=== PATIENT | female | born 1975 | race Caucasian/White ===

== ENCOUNTER 2022-08-16 09:13 | Inpatient (IN) | payer OTHER ==
[~2022-08-16] VITALS: Ht 157.5 cm; Wt 57.8 kg
[2022-08-16 11:17] LABS: BASOPHILS % 0.7 % (0.0-2.0); EOSINOPHILS % 0.2 % (0.0-5.0); LYMPHOCYTES % 20.4 % (20.0-50.0); MEAN CORPUSCULAR VOLUME 55.8 fL (81.0-99.0); MEAN PLATELET VOLUME 8.2 fl (7.4-10.4); MONOCYTES % 9.4 % (2.0-8.0); NEUTROPHILS % 69.3 % (40.0-76.0); PLATELET 414 x1000/uL (130-400); RED BLOOD CELL COUNT 2.32 mill/uL (4.2-5.4); RED CELL DISTRIBUTION WIDTH 24.1 % (11.6-14.6)
[2022-08-16 11:40] LABS: HEMATOCRIT. 12.9 % (36.0-48.0); HEMOGLOBIN. 3.5 g/dL (12.0-16.0)
[2022-08-16 11:49] LABS: CHLORIDE 106 mEq/L (98-107)
[2022-08-16 11:50] LABS: INR 1.1; PROTHROMBIN TIME 11.3 sec (9.6-11.0)
[2022-08-16 11:57] LABS: B-HCG QUANTITATIVE < 1 mIU/mL (<3)
[2022-08-16 12:01] LABS: HCG SCREEN NEGATIVE
[2022-08-16 12:03] LABS: PLATELET ESTIMATE NORMAL
[2022-08-16 12:37] LABS: CLARITY URINE CLOUDY (CLEAR); COLOR URINE YELLOW (YELLOW); KETONES URINE NEGATIVE (NEGATIVE); LEUKOCYTE ESTERASE URINE 2+ (NEGATIVE); NITRITE URINE NEGATIVE (NEGATIVE); OCCULT BLOOD URINE 3+ (NEGATIVE); PH URINE 5.5 (4.5-8.0); PROTEIN URINE TRACE (NEGATIVE); SPECIFIC GRAVITY URINE 1.012 (1.005-1.030)
[2022-08-16] MEDS ORDERED: POTASSIUM CHLORIDE 20MEQ TABLET SR PO ONE (12:45)
[2022-08-16] MEDS ORDERED: SODIUM CHLORIDE 0.9% 1,000 ML IV ONE (12:45)
[2022-08-16] MEDS ORDERED: CEFTRIAXONE 1 G PREMIX 50 ML IV ONE (12:45)
[2022-08-16] MEDS ORDERED: POTASSIUM CHLORIDE INJ 40 MEQ in DEXT 5% WATER 250 ML IV ONE (12:45)
[2022-08-16] MEDS: KCL 20MEQ/100ML X 2 FOR TOTAL KCL 40MEQ/200ML IV SCH ×2 (13:15→23:57)
[2022-08-16] MEDS ORDERED: CEFTRIAXONE 1 G PREMIX 50 ML IV NR (15:30)
[2022-08-16] MEDS ORDERED: ACETAMINOPHEN 325MG TABLET PO NR (20:30)
[2022-08-17] VITALS (12 sets, daily range): BP systolic 88–111; BP diastolic 44–98
[2022-08-17 01:54] LABS: BASOPHILS % 0.8 % (0.0-2.0); EOSINOPHILS % 0.1 % (0.0-5.0); LYMPHOCYTES % 16.2 % (20.0-50.0); MEAN CORPUSCULAR HEMOGLOBIN 18.4 pg (28.0-32.0); MEAN PLATELET VOLUME 8.4 fl (7.4-10.4); MONOCYTES % 7.1 % (2.0-8.0); NEUTROPHILS % 75.8 % (40.0-76.0); PLATELET 306 x1000/uL (130-400); RED BLOOD CELL COUNT 2.42 mill/uL (4.2-5.4); RED CELL DISTRIBUTION WIDTH 34.8 % (11.6-14.6)
[2022-08-17 02:27] LABS: HEMOGLOBIN. 4.5 g/dL (12.0-16.0)
[2022-08-17 02:28] LABS: HEMATOCRIT. 15.2 % (36.0-48.0)
[2022-08-17] MEDS: ACETAMINOPHEN 325MG TABLET PO PRN ×2 (10:54→18:50)
[2022-08-17] MEDS ORDERED: ONDANSETRON HCL 4MG/2ML INJ IV PRN (14:45)
[2022-08-17] MEDS: CEFTRIAXONE 1,000 MG in DEXTROSE 5% WATER 50 ML IV SCH (16:04)
[2022-08-17] MEDS ORDERED: ESTROGENS,CONJUGATED 25MG/VIAL IV NR (18:00)
[2022-08-17 19:24] LABS: HEMATOCRIT 23.6 % (36.0-48.0); HEMOGLOBIN 7.6 g/dL (12.0-16.0)
[2022-08-17] MEDS ORDERED: HYDROCODONE/ACETAMINOPHEN 5/325MG TABLET PO PRN ×2 (20:00→20:45)
[2022-08-17] MEDS ORDERED: NALOXONE HCL 0.4MG/ML VIAL IV PRN ×2 (20:00→20:45)
[2022-08-18 04:00] VITALS: BP 92/48
[2022-08-18 07:46] LABS: BASOPHILS % 0.6 % (0.0-2.0); HEMATOCRIT. 23.7 % (36.0-48.0); HEMOGLOBIN. 7.4 g/dL (12.0-16.0); LYMPHOCYTES % 8.4 % (20.0-50.0); MEAN CORPUSCULAR HEMOGLOBIN 22.3 pg (28.0-32.0); MEAN CORPUSCULAR VOLUME 71.6 fL (81.0-99.0); MEAN PLATELET VOLUME 8.6 fl (7.4-10.4); MONOCYTES % 4.9 % (2.0-8.0); NEUTROPHILS % 85.1 % (40.0-76.0); PLATELET 284 x1000/uL (130-400); RED BLOOD CELL COUNT 3.31 mill/uL (4.2-5.4); RED CELL DISTRIBUTION WIDTH 35.8 % (11.6-14.6)
[2022-08-18] MEDS: ACETAMINOPHEN 325MG TABLET PO PRN (07:51)
[2022-08-18 08:00] VITALS: BP 115/68
[2022-08-18 08:16] LABS: CHLORIDE 108 mEq/L (98-107)
[2022-08-18] MEDS ORDERED: LEVO-65 MT (11:05)
[2022-08-18] MEDS: CEFTRIAXONE 1,000 MG in DEXTROSE 5% WATER 50 ML IV SCH (13:59)
== END 2022-08-18 15:43 | disposition home or self-care (01) | DRG 663 ==
LOC: ER 09:13 → EDBEDREQ 11:51 → MICUSO 12:55 → EDBEDREQTM 12:57 → EDBEDREQ 12:57 → 7EST 08-17 00:19
PROVIDERS: ADMIT Internal Medicine; ATTEND Internal Medicine
PROC: 30233N1 Transfusion of Nonautologous Red Blood Cells into Peripheral Vein, Percutaneous Approach (ICD-10-PCS; principal; 2022-08-16)
DX: D64.9 Anemia, unspecified (principal); E87.6 Hypokalemia; N80.03 Adenomyosis of the uterus; N92.0 Excessive and frequent menstruation with regular cycle; N39.0 Urinary tract infection, site not specified
CPT/HCPCS: 36415; 71045; 76830; 76856; 80048; 81003; 84702; 84703; 85014; 85018; 85025; 86850; 86900; 86920; 93005; 99291; J0696; J1410; J3480; J7030; J7060; P9016

== ENCOUNTER 2023-07-30 13:18 | Emergency (ER) | payer OTHER ==
[~2023-07-30] VITALS: Ht 157.5 cm; Wt 58.0 kg
[~2023-07-30 13:18] MED LIST: LEVO-65 MT
[2023-07-30 13:35] VITALS: O2SAT 99
[2023-07-30] MEDS: ACETAMINOPHEN 325MG TABLET PO ONE (14:15)
[2023-07-30] MEDS ORDERED: IBUP-2029 MT (15:53)
[2023-07-30 16:51] VITALS: BP 121/82; PULSE 88; RESP 18; TEMP 98.5
== END 2023-07-30 17:05 | disposition home or self-care (01) ==
LOC: ER 13:18
DX: S09.90XA Unspecified injury of head, initial encounter (principal); H57.12 Ocular pain, left eye; Y04.0XXA Assault by unarmed brawl or fight, initial encounter; Y93.89 Activity, other specified; Y92.89 Other specified places as the place of occurrence of the external cause; Y99.8 Other external cause status
CPT/HCPCS: 70486; 81025; 99284